=== PATIENT | male | born 1945 | race Caucasian/White ===

== ENCOUNTER 2016-05-21 15:36 | Emergency (ER) | payer OTHER ==
[~2016-05-21] VITALS: Ht 165.1 cm; Wt 66.2 kg
[2016-05-21 15:40] VITALS: BP 127/97
[2016-05-21] MEDS ORDERED: ASPIR 8181 MG PO (15:46)
[2016-05-21] MEDS ORDERED: WELLBUTRIN 75 M75 M1 PO (15:46)
== END 2016-05-21 17:22 | disposition home or self-care (01) ==
LOC: ER 15:36
DX: R04.0 Epistaxis (principal); F32.9 Major depressive disorder, single episode, unspecified; J34.2 Deviated nasal septum; Z87.891 Personal history of nicotine dependence

== ENCOUNTER 2016-05-24 09:31 | Emergency (ER) | payer OTHER ==
[~2016-05-24] VITALS: Ht 165.1 cm; Wt 66.7 kg
[~2016-05-24 09:31] MED LIST: ASPIR 8181 MG PO; WELLBUTRIN 75 M75 M1 PO
[2016-05-24 09:58] LABS: ABSOLUTE NEUTROPHILS 6.5 thou/uL (1.4-8.2); BASOPHILS 0.5 % (0.0-2.0); EOSINOPHILS 1.6 % (0.0-3.0); HEMATOCRIT 39.1 % (42.0-52.0); HEMOGLOBIN 13.3 gm/dL (14.0-18.0); LYMPHOCYTES 19.9 % (24.0-44.0); MCH 32.6 pg (26.0-34.0); MCV 95.8 fL (80.0-100.0); PLATELET COUNT 182 thou/uL (150-400); RBC 4.08 mil/uL (4.50-6.00); RDW 12.7 % (10.5-14.5); WBC 9.8 thou/uL (4.0-11.0)
[2016-05-24 10:02] LABS: MANUAL DIFF NO
[2016-05-24 10:05] LABS: CALCIUM 9.5 mg/dL (8.5-10.1); CREATININE 0.9 mg/dL (0.6-1.3); POTASSIUM 4.2 mmol/L (3.5-5.1)
[2016-05-24] MEDS ORDERED: AFRIN15 ML NS (10:41)
[2016-05-24 11:13] VITALS: BP 111/71
== END 2016-05-24 11:14 | disposition home or self-care (01) ==
LOC: ER 09:31
PROVIDERS: Emergency Medicine
DX: R04.0 Epistaxis (principal); F32.9 Major depressive disorder, single episode, unspecified; Z87.891 Personal history of nicotine dependence
CPT/HCPCS: 56638; 56639

== ENCOUNTER → 2019-03-22 | Outpatient (CLI) | payer OTHER ==
[~2019-03-22] MED LIST changes: +AFRIN15 ML NS
== END ==
LOC: MRI 13:08
DX: I65.23 Occlusion and stenosis of bilateral carotid arteries (principal); R90.82 White matter disease, unspecified

== ENCOUNTER → 2019-09-27 | Outpatient (CLI) | payer OTHER | LOC: CAT 09:37 | PROVIDERS: ATTEND Neuromusculoskeletal Medicine & OMM | DX: S00.83XA Contusion of other part of head, initial encounter (principal); N28.89 Other specified disorders of kidney and ureter; G31.1 Senile degeneration of brain, not elsewhere classified; X58.XXXA Exposure to other specified factors, initial encounter; Y93.89 Activity, other specified; Y92.89 Other specified places as the place of occurrence of the external cause; Y99.8 Other external cause status ==

== ENCOUNTER 2019-10-03 17:11 | Emergency (ER) | payer OTHER ==
[~2019-10-03] VITALS: Ht 167.6 cm; Wt 56.7 kg
[2019-10-03 18:40] LABS: HEMATOCRIT 35.3 % (42.0-52.0); MCV 105.6 fL (80.0-100.0); PLATELET COUNT 119 thou/uL (150-400); RBC 3.34 mil/uL (4.50-6.00); RDW 12.8 % (10.5-14.5); WBC 5.2 thou/uL (4.0-11.0)
[2019-10-03 18:55] LABS: APTT 27.3 Seconds (24.5-32.8); INR 1.1; PROTIME 11.4 Seconds (9.3-11.4)
[2019-10-03 18:56] LABS: ANION GAP 9 mmol/L (7-16); BUN 14 mg/dL (7-18); CALCIUM 9.2 mg/dL (8.5-10.1); CHLORIDE 102 mmol/L (98-107); CO2 28 mmol/L (21-32); CREATININE 0.8 mg/dL (0.7-1.3); GLUCOSE 104 mg/dL (74-106); POTASSIUM 3.4 mmol/L (3.5-5.1); SODIUM 139 mmol/L (136-145)
[2019-10-03 19:01] LABS: TROPONIN-I <0.06 ng/mL (<0.06)
[2019-10-03 19:46] LABS: ABSOLUTE NEUTROPHILS 3.2 thou/uL (1.4-8.2)
[2019-10-03 19:47] LABS: PLATELET ESTIMATE DECREASED
[2019-10-03 19:48] LABS: ANISOCYTOSIS 1+; MACROCYTES 1+; POIKILOCYTOSIS 1+
[2019-10-03 21:25] VITALS: BP 151/91
[2019-10-03] MEDS ORDERED: KEFLEX500 M1 PO (21:48)
--- NOTE | 2019-10-04 07:49 | EKG ---
[facility] [place] [address] ELECTROCARDIOGRAM REPORT Name: MARY ROGERS Room #: DEP [facility]#: [id number] Admission: 10/03/19 Attend Phys: Discharge: 10/03/19 Date of : 45 Report #: [id number] THIS REPORT FOR: cc: Damian Solis,Nas Jackson MD [facility] THIS REPORT FOR: //name// [facility] ED Test Date: 2019-10-03 Test Time: 18:07:43 Pat Name: MARY ROGERS Department: Room: Gender: Emt Dispatcher: [facility] : 1945 Requested By: Galen Mota Order Number: [id number] MD: Nas Fuentes Measurements Intervals [place] Rate: 60 P: 5 [place]: 155 QRS: 58 QRSD: 93 T: 46 QT: 427 QTc: 427 Interpretive Statements Sinus rhythm Normal tracing No previous ECG available for comparison Electronically Signed On 10-04-2019 7:49:45 CDT by Nas Fuentes [email or web address] <ELECTRONICALLY SIGNED> By: Nas Fuentes MD, FAC 10/04/19 0749 06 06 Nas Fuentes MD, [facility] /EPI
== END 2019-10-03 21:27 | disposition home or self-care (01) ==
LOC: ER 17:11
PROVIDERS: Emergency Medicine
DX: R04.0 Epistaxis (principal); Z87.891 Personal history of nicotine dependence